=== PATIENT | male | born 1955 | race Caucasian/White ===

== ENCOUNTER → 2018-06-15 09:19 | Outpatient (CLI) | payer OTHER, SELFPAY ==
[2018-06-15 09:54] LABS: Creatinine, Serum 1.32 mg/dL (0.70-1.30); EST Glomerular Filtration Rate 58 mL/min (>60); Est Glom Filt Rate - Afr Amer 71 mL/min (>60)
== END ==
PROVIDERS: Family Provider Family Medicine; PCP Family Medicine; Visit Provider Nurse Practitioner Adult Health
DX: N13.30 Unspecified hydronephrosis (principal); R33.9 Retention of urine, unspecified; Z87.442 Personal history of urinary calculi
CPT/HCPCS: 36415; 82565

== ENCOUNTER → 2018-06-17 06:40 | Outpatient (CLI) | payer OTHER, SELFPAY ==
--- NOTE | 2018-06-17 06:46 | CT_ITS ---
STUDY: CT ABDOMEN AND PELVIS WITH AND WITHOUT CONTRAST REASON FOR EXAM: Male, 62 years old. Urinary retention RADIATION DOSAGE (If Supplied By Facility): CTDIvol = ( 25.38 ) mGy, DLP = ( 3967.39 ) mGycm TECHNIQUE: Transaxial images were obtained from the dome of the diaphragm to the symphysis pubis without oral contrast. 100 ml of Isovue 300 contrast was administered. Sagittal and coronal images were reconstructed. Individualized dose optimization techniques were used for this CT. COMPARISON: None. FINDINGS: Atelectasis/scarring within the lungs. Coronary artery calcifications. Decreased attenuation within the left ventricular apex likely prior infarct. Normal liver. Normal gallbladder and extrahepatic biliary system. Normal spleen. Normal pancreas. Normal bilateral adrenal glands. There is bladder wall thickening. The prostate is heterogeneous with calcifications with indentation of the base of bladder. The bladder appears distended. There is moderate to severe bilateral hydroureter with moderate hydronephrosis. There is mild perinephric fatty stranding. There is dilatation moderate to severe of the extrarenal pelvis. There is a small hiatal hernia. Normal small intestine. There are multiple colonic diverticula consistent with diverticulosis. The appendix is visualized and appears normal. There is diffuse atherosclerotic calcification of the abdominal aorta, without a demonstrated aneurysm. The IVC appears flattened correlate for hydration status. Nonspecific subcentimeter short axis mesenteric and retroperitoneal lymph nodes. Is a 2.1 cm soft tissue attenuation structure within the mesentery series 3 image 62/145. There is a small umbilical hernia containing fat. There are diffuse degenerative changes of the visualized lumbar spine. Left L5 spondylolysis. No significant anterior listhesis. There is moderate to severe degenerative changes L5-S1. CT/CT Abd/Pelvis W/WO Contrast IMPRESSION: There is bladder wall mild thickening. The bladder is distended. This could represent outlet obstruction. Underlying mass cannot be totally excluded. Recommend urinalysis and urology consultation. There is hydroureter and hydronephrosis as discussed above. No ureteral stones are seen. There is soft tissue attenuating structure within the urinary. A neoplastic process cannot be totally noted on this study alone. Recommend comparison to prior studies for stability. No prior studies are available at time of dictation. Diverticulosis without definitive CT evidence for diverticulitis. 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 Flattening of the IVC. Correlate with patient's hydration status. Other findings as discussed above. Electronically Signed: Edd Elizondo, at 5:33 EDT Tel , Service support ,
== END ==
PROVIDERS: Family Provider Family Medicine; PCP Family Medicine; Visit Provider Nurse Practitioner Adult Health
DX: N13.30 Unspecified hydronephrosis (principal); R33.9 Retention of urine, unspecified; Z87.442 Personal history of urinary calculi
CPT/HCPCS: 74178; Q9967

== ENCOUNTER → 2018-10-13 08:21 | Outpatient (CLI) | payer OTHER, SELFPAY ==
--- NOTE | 2018-10-13 08:24 | US_ITS ---
STUDY: RENAL ULTRASOUND - COMPLETE REASON FOR EXAM: Male, 63 years old. Hydronephrosis. Urinary frequency. Enlarged prostate. TECHNIQUE: Ultrasound evaluation of the kidneys was performed with real-time and static gavin-scale imaging. COMPARISON: CT abdomen and pelvis 06/17/2018. FINDINGS: RIGHT KIDNEY: Normal location of the right kidney, which is normal in size. The right kidney measures 11.6 x 4.2 x 6.1 cm. There is a normal cortex of the right kidney. The renal cortex measures 2.0 cm. There is no right renal mass or cyst. 3.5 x 1.8 mm nonobstructing calculus with distal acoustic shadowing in the midportion of the kidney. There is mild hydronephrosis. DISTAL RIGHT URETER: There is non-visualization of the distal right ureter. There is no demonstrated right ureterovesical junction calculus. There is a visualized right ureteral jet. LEFT KIDNEY: Normal location of the left kidney, which is normal in size. The left kidney measures 13.1 x 3.5 x 5.1 cm. There is a normal cortex of the left kidney. The renal cortex measures 1.5 cm. There is no left renal mass or cyst. There are no left renal calculi. There is mild left hydronephrosis. DISTAL LEFT URETER: There is non-visualization of the distal left ureter. There is no demonstrated left ureterovesical junction calculus. There is a visualized left ureteral jet. BLADDER: The distended urinary bladder has a volume of 322 ml. The empty urinary bladder has a volume of 0 ml. There is diffuse thickening of the urinary bladder wall. The posterior wall the bladder is irregular. The bladder wall is 5.2 mm thick. There is no demonstrated mass within the urinary bladder. There are no demonstrated bladder calculi. US/Kidney and Bladder IMPRESSION: 1. Mild bilateral hydronephrosis with no visible obstructing calculi or mass in both ureters and bladder. 2. 3.5 mm nonobstructing calculus in the midportion of the right kidney. 3. Bilateral ureteral jets were observed. 4. Irregular thickening of the urinary bladder wall. Cystoscopy will be very helpful for further evaluation. Electronically Signed: Tino Cristobal MD at 9:15 EST , Service support ,
== END ==
PROVIDERS: Family Provider Family Medicine; PCP Family Medicine; Referring Provider Nurse Practitioner Adult Health; Visit Provider Nurse Practitioner Adult Health
DX: N13.30 Unspecified hydronephrosis (principal); R35.0 Frequency of micturition
CPT/HCPCS: 76770